=== PATIENT | female | born 1945 | race Caucasian/White ===

== ENCOUNTER → 2016-07-28 | Outpatient (CLI) | payer OTHER, MEDICAID | END | disposition home or self-care (01) | LOC: PTH.S 09:02 | DX: E03.9 Hypothyroidism, unspecified (principal); I10 Essential (primary) hypertension ==

== ENCOUNTER → 2016-09-28 | Outpatient (CLI) | payer OTHER | END | disposition home or self-care (01) | LOC: PTH.S 09:28 | DX: E03.9 Hypothyroidism, unspecified (principal) ==